=== PATIENT | female | born 1985 | race Caucasian/White ===

== ENCOUNTER 2020-12-03 08:06 | Emergency (ER) | payer OTHER ==
--- NOTE | 2020-12-03 08:31 | EDM.PDOC ---
ED HPI GENERAL MEDICAL PROBLEM - General Chief Complaint: Diabetic Complaint Stated Complaint: MEDICAL [facility]IA [facility] Time Seen by Provider: 12/03/20 08:25 Source of Information: Reports: Patient, EMS, Family History Limitations: Reports: No Limitations - History of Present Illness INITIAL COMMENTS - FREE TEXT/NARRATIVE: 35 yo female here after about a 1 min self limiting seizure. She is an insulin dependent diabetic and has had a few seizures like this in the past usually following drinking ETOH and then experiencing hypoglycemia. Her last such seizure was about 12 yrs ago and her who was present for both states that they looked the same and lasted for a similar duration. EMS transported with stable vitals and glucose. She seemed a bit post-ictal for them. Lives in [place], [place]. Onset: Today, Sudden Onset Date: 12/03/20 Duration: Minutes: (~1), Resolved Prior to Arrival Location: Reports: Generalized Quality: Reports: Other (no pain reported) Severity: Mild Improves with: Reports: Other (time) Worsens with: Reports: Other (? 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: Reports: Other (see below) Other Treatments MICROPHONE BOOM OPERATOR: Blood sugar per ems 124 Headache Pain Score (Numeric/FACES): 3 - Related Data Allergies Allergy/AdvReac Type Severity Reaction Status Date / Time Sulfa (Sulfonamide Allergy Rash Verified 12/03/20 08:12 Antibiotics) Home Meds: Home Meds Insulin Lispro [HumaLOG] 1 unit SQ ASDIRECTED 12/03/20 [History] Ondansetron [Zofran ODT] 4 mg PO Q6H PRN #5 tab.dis 12/03/20 [Rx] Past Medical History HEENT History: Reports: Impaired Vision Respiratory History: Reports: Asthma Neurological History: Reports: Seizure, Other (See Below) Other Neuro History: hypoglycemic seizures Endocrine/Metabolic History: Reports: Diabetes, Type I Insulin Pump Model and Companion: [employer] Who Manages Your Pump: Patient (Self) Insulin Pump Management Assessment Comments: Pump was taken off by family and doesn't currently remember rate - Past Surgical History Musculoskeletal Surgical History: Reports: Other (See Below) Other Musculoskeletal Surgeries/Procedures:: Left ACL Social & Family History - Tobacco Use Tobacco Use Status *Q: Never Tobacco User Second Hand Smoke Exposure: No - Caffeine Use Caffeine Use: Reports: Coffee - Recreational Drug Use Recreational Drug Use: No ED ROS GENERAL - Review of Systems Review Of Systems: See Below Constitutional: Reports: No Symptoms HEENT: Reports: No Symptoms Respiratory: Reports: No Symptoms Cardiovascular: Reports: No Symptoms Endocrine: Reports: Low Glucose (likely, not documented) GI/Abdominal: Reports: No Symptoms : Reports: No Symptoms Skin: Reports: No Symptoms Neurological: Reports: Seizure ED EXAM GENERAL NO PERIP PULSE - Physical Exam Exam: See Below Exam Limited By: No Limitations General Appearance: Alert, WD/WN, No Apparent Distress Eye Exam: Bilateral Eye: Normal Inspection Ears: Normal External Exam, Normal Canal, Hearing Grossly Normal, Normal TMs Nose: Normal Inspection, No Blood Throat/Mouth: Normal Inspection, Normal Lips, Normal Oropharynx, Normal Voice, No Airway Compromise, Other (R lateral mid tongue small woundf from tongue biting) Head: Atraumatic, Normocephalic Neck: Normal Inspection Respiratory/Chest: No Respiratory Distress, Lungs Clear, Normal Breath Sounds, No Accessory Muscle Use Cardiovascular: Regular Rate, Rhythm, No Edema GI/Abdominal: Normal Bowel Sounds, Soft, Non-Tender, No Distention Back Exam: Normal Inspection. No: CVA Tenderness (R), CVA Tenderness (L) Extremities: Normal Inspection, Normal Range of Motion, Non-Tender, No Pedal Edema Neurological: Alert, Oriented, Normal Cognition, No Motor/Sensory Deficits Psychiatric: Normal Affect, Normal Mood Skin Exam: Warm, Dry, Intact, Normal Color, No Rash Course - Vital Signs Last Recorded V/S: Last Vital Signs Temp 36.3 C 12/03/20 08:21 Pulse 78 12/03/20 09:10 Resp 17 12/03/20 08:21 BP 98/50 L 12/03/20 09:10 Pulse Ox 96 12/03/20 09:10 - Orders/Labs/Meds Orders: Active Orders 24 hr Category Date Time Status GLUCOSE POC LAB TO COLLECT JPM [POC] Stat Lab 12/03/20 08:33 Ordered Labs: Laboratory Tests 12/03/20 Range/Units 08:29 POC Glucose 142 H (74-106) mg/dL Meds: Medications Discontinued Medications Generic Name Dose Route Start Last Admin Trade Name Nissa PRN Reason Stop Dose Admin Ondansetron HCl 4 mg 12/03/20 09:28 12/03/20 09:33 Ondansetron 4 Mg Tab.Dis PO 12/03/20 09:29 4 mg ONETIME ONE Administration Departure - Departure Time of Disposition: 10:10 Disposition: Home, Self-Care 01 Condition: Fair Clinical Impression: Seizure, Nausea - Discharge Information *PRESCRIPTION DRUG MONITORING PROGRAM REVIEWED*: Not Applicable *COPY OF PRESCRIPTION DRUG MONITORING REPORT IN PATIENT JENNY: Not Applicable Prescriptions: Ondansetron [Zofran ODT] 4 mg PO Q6H PRN #5 tab.dis PRN Reason: Nausea Instructions: Seizure, Adult, [id number], Nausea, Adult, [id number] Referrals: PCP,None [Primary Care Provider] - Forms: ED Department Discharge Additional Instructions: Use Zofran as needed for nausea control. Watch your blood sugars closely today. Recheck as needed. Sepsis Event Note (ED) - Evaluation Sepsis Screening Result: No Definite Risk - Focused Exam Vital Signs: Vital Signs Temp Pulse Resp BP Pulse Ox 12/03/20 09:10 78 98/50 L 96 12/03/20 08:33 92 110/76 95 12/03/20 08:21 36.3 C 96 17 116/56 L 96 12/03/20 08:08 36.3 C 96 17 116/56 L 96 - My Orders Last 24 Hours: My Active Orders 12/03/20 08:33 GLUCOSE POC LAB TO COLLECT JPM [POC] Stat - Assessment/Plan Last 24 Hours: My Active Orders 12/03/20 08:33 GLUCOSE POC LAB TO COLLECT JPM [POC] Stat
[2020-12-03] MEDS ORDERED: Ondansetron 4 MG Tab.DIS PO ONE (09:28)
== END 2020-12-03 10:16 | disposition home or self-care (01) ==
LOC: JP.ED 08:06
DX: R56.9 Unspecified convulsions (principal); R11.0 Nausea; E10.9 Type 1 diabetes mellitus without complications; Z88.2 Allergy status to sulfonamides; Z79.899 Other long term (current) drug therapy
CPT/HCPCS: 82947; 99283; 99284; A9270